=== PATIENT | female | born 1985 | race Caucasian/White ===

== ENCOUNTER 2017-01-19 12:30 | Inpatient (IN) | payer MEDICAID ==
[~2017-01-19] VITALS: Ht 165.1 cm; Wt 90.5 kg
[2017-01-20 09:41] VITALS: Ht 165.1 cm; Wt 90.5 kg
[2017-01-20 10:00] VITALS: BP 107/62; PULSE 56; RESP 20
[2017-01-20] MEDS ORDERED: CARBOPROST 250 MCG INJ IM PRN ×2 (10:00→17:30)
[2017-01-20] MEDS ORDERED: METHYLERGONOVINE 0.2 MG INJ IM PRN ×2 (10:00→17:30)
[2017-01-20] MEDS ORDERED: OXYTOCIN 30 UNITS/LR 500 ML IV PRN ×2 (10:00→17:30)
[2017-01-20] MEDS ORDERED: OXYTOCIN 30 UNITS/LR 500 ML IV SCH (10:00)
[2017-01-20] MEDS ORDERED: CEFAZOLIN 2 GM/50 ML (PMX) 50 ML IV SCH (10:00)
[2017-01-20] MEDS ORDERED: MISOPROSTOL 200 MCG TAB PR PRN ×2 (10:00→17:30)
[2017-01-20] MEDS: LACTATED RINGER'S 1,000 ML IV SCH ×2 (10:10→11:52)
[2017-01-20 11:04] LABS: BASOPHILS % 0.1 % (0.0-2.0); EOSINOPHILS % 0.4 % (0.0-7.0); HEMATOCRIT 27.5 % (37.0-47.0); HEMOGLOBIN 9.1 g/dl (12.0-16.0); LYMPHOCYTES # 1.7 10^3/ul (0.8-2.9); LYMPHOCYTES % 22.5 % (15.0-51.0); MEAN CORPUSCULAR HEMOGLOBIN 26.3 pg (29.0-33.0); MEAN CORPUSCULAR HGB CONC 33.1 g/dl (32.0-37.0); MEAN CORPUSCULAR VOLUME 79.5 fl (82.0-101.0); MEAN PLATELET VOLUME 9.7 fl (7.4-10.4); MONOCYTE # 0.6 10^3/ul (0.3-0.9); MONOCYTES % 7.1 % (0.0-11.0); NEUTROPHILS % 69.5 % (39.0-77.0); PLATELET COUNT 303 10^3/UL (140-415); RED BLOOD COUNT 3.46 10^6/ul (4.20-5.40); RED CELL DISTRIBUTION WIDTH 13.9 % (11.5-14.5); WHITE BLOOD COUNT 7.8 10^3/ul (4.8-10.8)
[2017-01-20 11:30] LABS: INR 0.95; PARTIAL THROMBOPLASTIN TIME 25.8 Sec (25.0-35.0); PROTIME 12.7 Sec (12.2-14.2)
[2017-01-20] MEDS ORDERED: OXYTOCIN 30 UNITS/LR 500 ML BAG IV ONE (12:30)
[2017-01-20] MEDS ORDERED: CITRIC ACID/NA CITRATE 30 ML CUP ONE (12:35)
[2017-01-20] MEDS ORDERED: ONDANSETRON 4 MG INJ ONE (12:43)
[2017-01-20] MEDS ORDERED: KETOROLAC 30 MG INJ ONE (12:43)
[2017-01-20] MEDS ORDERED: PHENYLephrine (100 MCG/ML) 5ML SYG ONE (12:43)
[2017-01-20] MEDS ORDERED: morphine SULFATE/PF (10 MG/10 ML) INJ ONE (12:43)
[2017-01-20] MEDS ORDERED: OXYTOCIN 10 UNIT INJ ONE (12:43)
[2017-01-20] MEDS ORDERED: DEXAMETHASONE 4 MG/ML 1 ML INJ ONE (12:43)
[2017-01-20] MEDS ORDERED: METOCLOPRAMIDE 10 MG INJ ONE (12:43)
[2017-01-20] MEDS ORDERED: CITRIC ACID/NA CITRATE 30 ML CUP PO ONE (13:00)
[2017-01-20] MEDS ORDERED: HYDROCODONE/APAP (5/325) TAB PO PRN ×3 (14:00→17:30)
[2017-01-20] MEDS ORDERED: morphine 2 MG INJ IV PRN (14:00)
[2017-01-20] MEDS ORDERED: NALBUPHINE HCL (10 MG/1 ML) INJ IV PRN (14:00)
[2017-01-20] MEDS ORDERED: NALOXONE (0.4 MG/ML) INJ IV PRN (14:00)
[2017-01-20] MEDS ORDERED: morphine 4 MG/ML VIAL IV PRN (14:00)
[2017-01-20] MEDS ORDERED: DIPHENHYDRAMINE 50 MG INJ IV PRN (14:00)
[2017-01-20] MEDS ORDERED: ACETAMINOPHEN 500 MG TAB PO PRN (14:00)
[2017-01-20] MEDS ORDERED: HYDROmorphONE 1 MG/ML SYG IV PRN ×2 (14:00)
--- NOTE | 2017-01-20 14:29 | OPR ---
Operative Report Planned Procedure Free Text/Dictation [age] years of female 4 para 3 history of 2 previous section request for bilateral tubal ligation at the time of section Procedure date Jan 20, 2017 Procedure(s) January 20, 2017 at 1400 Performed by: GARRETT JAVED MD Assisting provider: TRINITY MELISSA MD Anesthesiologist: MATTIE CONWAY MD Pre-procedure diagnosis 39 weeks 3 days 2 previous section request for bilateral tubal ligation Anesthesia Type: spinal Procedure Description Under satisfactory spinal [] anesthesia, the patient was prepped and draped and placed in a supine position, tilted to the left. Pfannenstiel incision was made , carried through the subcutaneous tissue. Bleeders brought under control with electrocautery. Fascia incised to the length of the incision. Rectus muscles from the fascia, divided midline. Peritoneum exposed, entered through a transverse incision. Exploration of abdomen gravid uterus normal-appearing tubes and ovary extremely thinned out lower segment of the uterus 1 mm thickness the baby from the abdominal cavity only with uterine serosa . Bladder flap was developed. Transverse incision was made in the lower segment of the uterus. Amniotic sac ruptured. [Clear] amniotic fluid noted live baby boy was delivered from unengaged vertex 8 and 9. [] Nasal oropharyngeal suction was performed. baby handed to the team for immediate attention patient received 20 units of Pitocin. placenta was delivered manually intact. Uterine cavity was cleaned with wet sponge and drainage established. Uterus closed in 2 layers using Monocryl number] in continuous fashion bilateral tubal ligation performed by identifying the right fallopian tube fimbria and ampullar section of the tube grasped by a Haleigh excised suture material used #0 plain catgut was reinforced with the same suture material cut end of the tube was cauterized specimen submitted to the pathology same procedure performed for the opposite side peritoneal cavity irrigated with warm saline. Sponge, needle and instrument count reported to be correct. Abdominal peritoneum closed with 2-0 chromic catgut [] continuously. Rectus muscle approximated with several interrupted 2-0 chromic catgut []. Fascia closed with #1 PDS [], cutaneous tissue approximated with interrupted 2- 0 chromic catgut skin closed with N sorb. Estimated blood loss [6-700 mL. Urine bag contained 2 []mL of clear urine patient tolerated procedure well transferred to recovery room in good condition Post-Procedure Findings: Live Baby boy 8 and 9 Specimen removed: No Complications: None Pt Condition post procedure: stable Physician Certification I, the undersigned physician, hereby certify that I have discussed the procedure described in this consent form with this patient (or the patient's legal strategic partnership representative), including: * The risk and benefits of the procedure; * Any adverse reactions that may reasonably be expected to occur; * Any alternative efficacious methods of treatment which may be medically viable ; * The potential problems that may occur during recuperation; * Potential for blood transfusion and associated risks/benefits; and * Any research or economic interest I may have regarding this treatment. I further certify that the patient/legally responsible person was encouraged to ask question and that all questions were answered. GARRETT JAVED MD Jan 20, 2017 14:27
--- NOTE | 2017-01-20 14:43 | HP ---
Date/Time of Note Date/Time of Note DATE: 01/20/17 TIME: 14:29 OB - History Hx of Present Free Text/Dictation 31 years old 4 para 3 history of 2 previous section EDC January 26, 2017 admitted to [facility] at 39 weeks 1 day with request for bilateral tubal ligation at the time of this patient has been under the care of the [facility] and her was not complicated with gestational diabetes -induced hypertension or any other medical or surgical condition [employer] AIDE history [place] at this 12 history of total of 4 including present one normal vaginal delivery 2 Allergies Denies allergy to any known medication Social habit denies a smoking or drinking using illicit drugs Physical exam the 5 feet 5 200 pounds total weight gain during the 25 pound Temperature 98.3 pulse 76 respiration 17 blood pressure 109/67 Head ears nose and throat negative Neck supple no thyromegaly Lungs clear to P&A Heart normal sinus rhythm no murmur Breasts status compatible with state of the no abnormal palpable mass no nipple retraction or discharge no axillary adenopathy Abdomen fundal height 37 cm from symphysis pubis heart rate category 1 mild contraction Pelvic examination deferred Extremities no edema no varicosities Impression Intrauterine at 39 weeks plus gestation history of 2 previous section request for bilateral tubal ligation Patient has been counseled regarding the failure rate of tubal ligation increased risk of ectopic future failure to conceive also complication of the surgery including bowel bladder injury infection hemorrhage and wound hematoma. She would like to proceed with the operation Chief Complaint: 39 weeks history of 2 previous section Estimated Due Date: Jan 26, 2017 : 4 Para: 3 Care: Good Care Ultrasounds: Normal mid trimester US Obstetrical Complications: None Medical Complications: None Past Family/Social History * Past Medical, Surgical, Family and Obstetric Histories reviewed from chart. Rubella: immune RPR/VDRL: Negative GBS Status: Negative OB Admission Exam Vital Signs Vital Signs Vital Signs Date Time Temp Pulse Resp B/P Pulse Ox O2 Delivery O2 Flow Rate FiO2 01/20/17 13:26 93 21 Physical Exam HEENT: WNL Heart: Rhythm Normal Abdomen: WNL Extremities: Normal Reflexes: Normal Cervical Dilatation: None Membranes: Intact Heart Rate: 130's Accelerations: Accelerations Present Decelerations: No Decelerations Varibility: Moderate Intensity: Mild Last 72 hours Lab Results CBC & BMP 01/20/17 10:10 GARRETT JAVED MD Jan 20, 2017 14:43
[2017-01-20] MEDS: ONDANSETRON 4 MG INJ IV PRN ×2 (15:11→21:55)
[2017-01-20 17:05] VITALS: BP 109/55; PULSE 63; RESP 19
[2017-01-20] MEDS ORDERED: LANOLIN 7 GM TUBE TOP PRN (17:30)
[2017-01-20] MEDS ORDERED: CEFAZOLIN 1 GM/50 ML (PMX) 50 ML IVPB SCH (17:30)
[2017-01-20] MEDS ORDERED: OXYCODONE/ACETAMINOPHEN (5/325) TAB PO PRN ×2 (17:30)
[2017-01-20] MEDS: IBUPROFEN 600 MG TAB PO SCH (17:36)
[2017-01-20 18:00] VITALS: BP 110/62; PULSE 72; RESP 19
[2017-01-20] MEDS: OXYTOCIN 30 UNITS/LR 500 ML IV SCH ×2 (18:03→22:21)
[2017-01-20 19:50] VITALS: BP 104/51; PULSE 69; RESP 18
[2017-01-21] VITALS: BP 100/54; PULSE 71; RESP 18
[2017-01-21] MEDS: OXYTOCIN 30 UNITS/LR 500 ML IV SCH ×2 (02:41→05:26)
[2017-01-21 04:00] VITALS: BP 97/58; PULSE 59; RESP 18
[2017-01-21] MEDS: IBUPROFEN 600 MG TAB PO SCH ×5 (06:00→23:27)
[2017-01-21] MEDS ORDERED: LACTATED RINGER'S 1,000 ML IV SCH (07:00)
[2017-01-21 07:45] VITALS: BP 102/55; PULSE 65; RESP 16
[2017-01-21] MEDS: SENNA/DOCUSATE NA (8.6MG/50MG) TAB PO SCH ×2 (08:48→21:44)
[2017-01-21 10:01] LABS: EOSINOPHILS % 0.2 % (0.0-7.0); LYMPHOCYTES % 18.6 % (15.0-51.0); MEAN CORPUSCULAR HEMOGLOBIN 25.8 pg (29.0-33.0); MEAN CORPUSCULAR HGB CONC 31.8 g/dl (32.0-37.0); MEAN CORPUSCULAR VOLUME 81.2 fl (82.0-101.0); MEAN PLATELET VOLUME 9.2 fl (7.4-10.4); MONOCYTE # 0.6 10^3/ul (0.3-0.9); MONOCYTES % 5.5 % (0.0-11.0); NEUTROPHILS % 75.2 % (39.0-77.0); PLATELET COUNT 217 10^3/UL (140-415); RED BLOOD COUNT 2.71 10^6/ul (4.20-5.40); RED CELL DISTRIBUTION WIDTH 13.8 % (11.5-14.5); WHITE BLOOD COUNT 10.7 10^3/ul (4.8-10.8)
[2017-01-21 12:00] VITALS: BP 107/60; PULSE 75; RESP 16
--- NOTE | 2017-01-21 12:09 | PN ---
Date/Time of Note Date/Time of Note DATE: 01/21/17 TIME: 12:09 OB Subjective Subjective Subjective Post C section day 2 Doing Well Afebrile Ambulatory Chest Clear Breasts are soft , Nipples are intact Abdomen is soft Fundus is firm Moderate amount of lochia Incision is clean ,No evidence of infection No calf tenderness No ankle edema Laboratory Tests Test 01/21/17 09:44 White Blood Count 10.710^3/ul Red Blood Count 2.7110^6/ul Hemoglobin 7.0g/dl Hematocrit 22.0% Mean Corpuscular Volume 81.2fl Mean Corpuscular Hemoglobin 25.8pg Mean Corpuscular Hemoglobin Concent 31.8g/dl Red Cell Distribution Width 13.8% Platelet Count 70368^3/UL Mean Platelet Volume 9.2fl Neutrophils % 75.2% Lymphocytes % 18.6% Monocytes % 5.5% Eosinophils % 0.2% Basophils % 0.0% Nucleated Red Blood Cells % 0.0/100WBC Neutrophils # (Manual) 810^3/ul Lymphocytes # 2.010^3/ul Monocytes # 0.610^3/ul Eosinophils # 0.010^3/ul Basophils # 0.010^3/ul Nucleated Red Blood Cells # 0.010^3/ul Current Medications Medications (Trade) Dose Ordered Sig/Ximena Route PRN Reason Start Time Stop Time Status Last Admin Dose Admin Lactated Ringer's 1,000 ml @ 125 mls/hr Q8H IV 01/20/17 09:38 01/20/17 17:32 DC 01/20/17 10:10 Cefazolin Sodium/ Dextrose 50 ml @ 100 mls/hr ONCE IV 01/20/17 10:00 01/20/17 17:32 DC Oxytocin/Lactated Ringer's 500 ml @ 125 mls/hr ONCE IV 01/20/17 10:00 01/20/17 17:32 DC 01/20/17 16:19 Oxytocin/Lactated Ringer's 500 ml @ 0 mls/hr ONCE PRN IV For Hemorrhage Management 01/20/17 10:00 01/20/17 17:32 DC Methylergonovine Maleate (Methergine) 0.2 mg ONCE PRN IM VAGINAL BLEEDING 01/20/17 10:00 01/20/17 17:32 DC Carboprost Tromethamine (Hemabate) 250 mcg ONCE PRN IM VAGINAL BLEEDING 01/20/17 10:00 01/20/17 17:32 DC Misoprostol (Cytotec) 1,000 mcg ONCE PRN PA VAGINAL BLEEDING 01/20/17 10:00 01/20/17 17:32 DC Citric Acid/ Sodium Citrate (Bicitra) 30 ml STK-MED ONCE .ROUTE 01/20/17 12:35 01/20/17 12:36 DC Citric Acid/ Sodium Citrate (Bicitra) 30 ml PRE-OP ONCE PO 01/20/17 13:00 01/20/17 13:01 DC Morphine Sulfate (Duramorph) 10 mg STK-MED ONCE .ROUTE 01/20/17 12:43 01/20/17 12:44 DC Ondansetron HCl (Zofran Inj) 4 mg STK-MED ONCE .ROUTE 01/20/17 12:43 01/20/17 12:44 DC Metoclopramide HCl (Reglan) 10 mg STK-MED ONCE .ROUTE 01/20/17 12:43 01/20/17 12:44 DC Oxytocin (Oxytocin) 10 units STK-MED ONCE .ROUTE 01/20/17 12:43 01/20/17 12:44 DC Phenylephrine HCl (German-Synephrine Inj Syg) 500 mcg STK-MED ONCE .ROUTE 01/20/17 12:43 01/20/17 12:44 DC Ketorolac Tromethamine (Toradol) 30 mg STK-MED ONCE .ROUTE 01/20/17 12:43 01/20/17 12:44 DC Dexamethasone (Decadron) 4 mg STK-MED ONCE .ROUTE 01/20/17 12:43 01/20/17 12:44 DC Hydromorphone HCl (Dilaudid) 0.2 mg Q2H PRN IV PAIN LEVEL 1-5 01/20/17 14:00 Hydromorphone HCl (Dilaudid) 0.4 mg Q2H PRN IV PAIN LEVEL 6-10 01/20/17 14:00 Morphine Sulfate (morphine) 2 mg Q2H PRN IV PAIN LEVEL 1-5 01/20/17 14:00 01/20/17 17:32 DC Morphine Sulfate (morphine) 4 mg Q2H PRN IV PAIN LEVEL 6-10 01/20/17 14:00 01/20/17 17:32 DC Acetaminophen (Tylenol Tab) 500 mg Q4H PRN PO PAIN LEVEL 1-3 01/20/17 14:00 01/20/17 17:32 DC Acetaminophen/ Hydrocodone Bitart ([place] (5/325)) 1 tab Q4H PRN PO PAIN LEVEL 4-6 01/20/17 14:00 01/20/17 17:32 DC Diphenhydramine HCl (Benadryl) 25 mg Q4H PRN IV PRURITUS 01/20/17 14:00 Nalbuphine HCl (Nubain) 10 mg Q4H PRN IV PRURITUS 01/20/17 14:00 01/20/17 17:33 DC Ondansetron HCl (Zofran Inj) 4 mg Q6H PRN IV NAUSEA AND/OR VOMITING 01/20/17 14:00 01/20/17 21:55 Naloxone HCl (Narcan) 0.2 mg Q2M PRN IV FOR RESP RATE 8 OR LESS 01/20/17 14:00 Miscellaneous Information (* Miscellaneous Pharmacy Order) DURAMORPH: 0.2 MG SPI... GIVEN NEURAXIAL XX 01/20/17 14:00 01/20/17 17:33 DC Acetaminophen/ Hydrocodone Bitart ([place] (5/325)) 1 tab Q4H PRN PO PAIN LEVEL 4-6 01/20/17 17:30 Acetaminophen/ Hydrocodone Bitart ([place] (5/325)) 2 tab Q4H PRN PO PAIN LEVEL 7-10 01/20/17 17:30 Oxycodone/ Acetaminophen (Percocet (5/ 325)) 1 tab Q4H PRN PO PAIN LEVEL 4-6 01/20/17 17:30 Oxycodone/ Acetaminophen (Percocet (5/ 325)) 2 tab Q4H PRN PO PAIN LEVEL 7-10 01/20/17 17:30 Ibuprofen (Motrin) 600 mg Q6 PO 01/20/17 18:00 Simethicone (Mylicon) 160 mg Q8H PRN PO DISTENSION/GAS/BLOATING 01/20/17 17:30 Senna/Docusate Sodium (Senokot-S) 1 tab BID PO 01/21/17 09:00 01/21/17 08:48 Lanolin (Oga-F-Gyecri) 1 applic BEDSIDE MEDICATION PRN TOP BEDSIDE FOR SINDHU TO NIPPLES 01/20/17 17:30 01/20/17 17:57 Diphtheria/ Tetanus/Acell Pertussis 0.5 ml 0.5 ml ONCE ONCE IM* 01/23/17 09:00 01/23/17 09:01 Oxytocin/Lactated Ringer's 500 ml @ 0 mls/hr ONCE PRN IV For Hemorrhage Management 01/20/17 17:30 Methylergonovine Maleate (Methergine) 0.2 mg ONCE PRN IM VAGINAL BLEEDING 01/20/17 17:30 Carboprost Tromethamine (Hemabate) 250 mcg ONCE PRN IM VAGINAL BLEEDING 01/20/17 17:30 Misoprostol 1000 mcg 1,000 mcg ONCE PRN PA VAGINAL BLEEDING 01/20/17 17:30 Cefazolin Sodium 50 ml @ 100 mls/hr ONCE IVPB 01/20/17 17:30 01/20/17 17:59 DC 01/20/17 21:47 Oxytocin/Lactated Ringer's 500 ml @ 125 mls/hr Q4H IV 01/20/17 17:26 01/21/17 02:41 Lactated Ringer's (Lr) 1,000 ml @ 125 mls/hr Q8H IV 01/21/17 07:00 01/21/17 06:55 New born is doing well, Breast feeding ESTHER GARCIA MD Jan 21, 2017 12:09
[2017-01-21 16:00] VITALS: BP 99/63; PULSE 71; RESP 16
[2017-01-21 19:50] VITALS: BP 96/54; PULSE 77; RESP 17
[2017-01-22 04:00] VITALS: BP 95/55; PULSE 63; RESP 17
[2017-01-22] MEDS: IBUPROFEN 600 MG TAB PO SCH ×3 (05:24→17:21)
[2017-01-22 07:40] VITALS: BP 95/61; PULSE 72; RESP 16
[2017-01-22] MEDS: SENNA/DOCUSATE NA (8.6MG/50MG) TAB PO SCH ×2 (08:34→20:55)
--- NOTE | 2017-01-22 10:04 | PN ---
Date/Time of Note Date/Time of Note DATE: 01/22/17 TIME: 10:03 OB Subjective Subjective Subjective Post due to Abdomen soft VSS Incision dry Bowel sounds present No bowel movement Extremity normal Enema recommended Ambulation encouraged GARRETT JAVED MD Jan 22, 2017 10:04
[2017-01-22] MEDS ORDERED: NA PHOSPHATE/BIPHOS 133 ML ENEMA PR ONE (11:00)
[2017-01-22 15:47] VITALS: BP 111/55; PULSE 74; RESP 16
[2017-01-22 20:10] VITALS: BP 108/67; PULSE 83; RESP 18
[2017-01-23 04:00] VITALS: BP 108/56; PULSE 74; RESP 19
[2017-01-23] MEDS: IBUPROFEN 600 MG TAB PO SCH ×3 (06:44→11:22)
[2017-01-23 07:40] VITALS: BP 111/63; PULSE 73; RESP 19
[2017-01-23] MEDS ORDERED: DIPHTH/TET/ACEL PERTUSS (ADULT) 0.5 ML VIAL IM* ONE (09:00)
[2017-01-23] MEDS: SENNA/DOCUSATE NA (8.6MG/50MG) TAB PO SCH (09:56)
--- NOTE | 2017-01-23 15:16 | DS ---
Date/Time of Note Date/Time of Note DATE: 01/23/17 TIME: 15:12 Discharge Summary Admission/Discharge Info Admit Date/Time Jan 20, 2017 at 09:28 Discharge Date/Time January 23, 2017 1410 Discharge Diagnosis Post repeat date 3 with lateral tubal ligation Patient Condition: Good Procedures bilateral tubal ligation Hx of Present Illness Regnancy history of previous request for bilateral tubal ligation Hospital Course Factory recovery uneventful Follow-up Plan Post instructions given amended to make appointment to be seen at the clinic in 1week Primary Care Provider Care Physician No Primary Time spent on discharge: < 30 minutes GARRETT JAVED MD Jan 23, 2017 15:16
== END 2017-01-23 16:00 | disposition home or self-care (01) | DRG 766 ==
LOC: L-D 01-20 09:28 → PP1 01-20 16:53
PROVIDERS: ADMIT Obstetrics & Gynecology; ATTEND Obstetrics & Gynecology
PROC: 10D00Z1 Extraction of Products of Conception, Low, Open Approach (ICD-10-PCS; principal; 2017-01-21)
PROC: 0UB70ZZ Excision of Bilateral Fallopian Tubes, Open Approach (ICD-10-PCS; 2017-01-21)
DX: O34.211 Maternal care for low transverse scar from previous cesarean delivery (principal); Z30.2 Encounter for sterilization; Z37.0 Single live birth; Z3A.39 39 weeks gestation of pregnancy
CPT/HCPCS: 85025; 85610; 85730; 86592; 86850; 86900; 86901; 86920; 87340; 88302; 94760; 99464; J0690; J1100; J1885; J2274; J2370; J2405; J2590; J2765; J7120